=== PATIENT | female | born 1995 | race American Indian/Alaskan Native ===

== ENCOUNTER 2018-10-14 07:52 | Emergency (ER) | payer OTHER ==
[2018-10-14] MEDS ORDERED: IBUPROFEN PO ONE (09:16)
--- NOTE | 2018-10-14 09:17 | Emergency Department Report ---
ED Extremity Problem HPI - General Chief complaint: Extremity Injury, Lower Stated complaint: (R) FOOT PAIN Time Seen by Provider: 10/14/18 09:01 Source: patient Mode of arrival: Ambulatory Limitations: No Limitations - History of Present Illness Initial comments: 23-year-old female presents to ED with pain to right heel 3 days. Patient denies any injury. States that she awoke from sleep, got out of bed, and immediately experienced pain in her right heel upon standing. She states she has kept it elevated when not at work. Has been using her mother's cane for ambulation. Denies any swelling. Denies taking any medications for pain. MD Complaint: extremity pain -: days(s) (3) Location: right, other (foot) History of Same: No -: No myalgia, No fever Radiation: none Severity scale (0 -10): 10 Quality: aching Consistency: intermittent Improves with: immobilization Worsens with: weight bearing, walking Associated Symptoms: denies other symptoms - Related Data Previous Rx's Medication Instructions Recorded Last Taken Type Naproxen [Naprosyn] 500 mg PO BID #20 tablet 10/14/18 Unknown Rx predniSONE [Prednisone] 50 mg PO DAILY #5 tablet 10/14/18 Unknown Rx Allergies Allergy/AdvReac Type Severity Reaction Status Date / Time No Known Allergies Allergy Unverified 10/14/18 07:53 ED Review of Systems ROS: Stated complaint: (R) FOOT PAIN Other details as noted in HPI Comment: All other systems reviewed and negative Musculoskeletal: as per HPI. denies: joint swelling Neurological: denies: paresthesias ED Past Medical Hx - Past Medical History Previous Medical History?: No - Surgical History Additional Surgical History: T&A - Social History Smoking Status: Current Every Day Smoker Substance Use Type: Alcohol - Medications Home Medications: Home Medications Medication Instructions Recorded Confirmed Last Taken Type Naproxen [Naprosyn] 500 mg PO BID #20 tablet 10/14/18 Unknown Rx predniSONE [Prednisone] 50 mg PO DAILY #5 tablet 10/14/18 Unknown Rx ED Physical Exam - General Limitations: No Limitations General appearance: alert, in no apparent distress, obese - Head Head exam: Present: atraumatic, normocephalic - Eye Eye exam: Present: normal appearance - ENT ENT exam: Present: mucous membranes moist - Neck Neck exam: Present: normal inspection - Respiratory Respiratory exam: Present: normal lung sounds bilaterally. Absent: respiratory distress - Cardiovascular Cardiovascular Exam: Present: regular rate, normal rhythm - GI/Abdominal GI/Abdominal exam: Present: soft. Absent: distended - Extremities Exam Extremities exam: Present: other (tenderness to right heel, no swelling or erythema noted) - Neurological Exam Neurological exam: Present: alert, oriented X3 - Psychiatric Psychiatric exam: Present: normal affect, normal mood - Skin Skin exam: Present: warm, dry, intact, normal color ED Course Vital Signs 10/14/18 07:53 Temperature 99.1 F Pulse Rate 82 Respiratory 18 Rate Blood Pressure 156/100 O2 Sat by Pulse 100 Oximetry Critical care attestation.: If time is entered above; I have spent that time in minutes in the direct care of this critically ill patient, excluding procedure time. ED Disposition Clinical Impression: Plantar fasciitis of right foot Disposition: DC-01 TO HOME OR SELFCARE Is pt being admited?: No Condition: Stable Instructions: Plantar Fasciitis (ED) Prescriptions: Naproxen [Naprosyn] 500 mg PO BID #20 tablet predniSONE [Prednisone] 50 mg PO DAILY #5 tablet Referrals: [facility] [Other] - 3-5 Days NIKKI BIANCHI MD [Staff Physician] - 3-5 Days Time of Disposition: 09:17
[2018-10-14 10:01] VITALS: BP 120/84
== END 2018-10-14 09:59 | disposition home or self-care (01) ==
LOC: ED 07:52
DX: M72.2 Plantar fascial fibromatosis (principal); F17.200 Nicotine dependence, unspecified, uncomplicated
CPT/HCPCS: 99283

== ENCOUNTER 2019-02-26 17:21 | Emergency (ER) | payer SELFPAY ==
[2019-02-26 18:00] VITALS: BP 175/93
--- NOTE | 2019-02-26 18:00 | Event Note ---
ED Screening Note ED Screening Note: pt states she did not have a cycle last month states she began to have bleeding on February 16 and is still having bleeding now states first it was spotting but has gotten heavier no urinary sx no N/V/D no fever no PMHx no allergies to meds +smoker +occ drinker no drug use This initial assessment/diagnostic orders/clinical plan/treatment(s) is/are subject to change based on patients health status, clinical progression and re- assessment by fellow clinical providers in the ED. Further treatment and workup at subsequent clinical providers discretion. Patient/guardian urged not to elope from the ED as their condition may be serious if not clinically assessed and managed. Initial orders include: UA, labs
[2019-02-26 18:32] LABS: Basophils # (Auto) 0.1 K/mm3 (0.0-0.1); Basophils % (Auto) 0.8 % (0.0-1.8); Eosinophils # (Auto) 0.1 K/mm3 (0.0-0.4); Eosinophils % (Auto) 1.5 % (0.0-4.3); Hematocrit 39.4 % (30.3-42.9); Lymphocytes # (Auto) 2.2 K/mm3 (1.2-5.4); Lymphocytes % (Auto) 30.2 % (13.4-35.0); Mean Corpuscular HGB Conc 33 % (30-34); Mean Corpuscular Volume 92 fl (79-97); Monocytes # (Auto) 0.5 K/mm3 (0.0-0.8); Monocytes % (Auto) 6.8 % (0.0-7.3); Platelet Count 315 K/mm3 (140-440); Red Blood Count 4.29 M/mm3 (3.65-5.03); Red Cell Distribution Width 14.6 % (13.2-15.2)
[2019-02-26 18:52] LABS: BUN/Creatinine Ratio 20; Blood Urea Nitrogen 14 mg/dL (7-17); Calcium 9.2 mg/dL (8.4-10.2); Hemolysis Index 9
[2019-02-26 19:20] LABS: Bilirubin,Urine NEG (Negative); Blood,Urine LG (Negative); Color,Urine Yellow (Yellow); Mucus,Urine FEW /HPF
[2019-02-26 19:23] LABS: RBC,Urine > 182.0 /HPF (0.0-6.0)
[2019-02-26] MEDS ORDERED: IBUPROFEN PO ONE (20:03)
[2019-02-26] MEDS ORDERED: FIORICET PO ONE (20:03)
--- NOTE | 2019-02-26 20:50 | Emergency Department Report ---
ED Female HPI - General Chief complaint: Vaginal Bleeding Stated complaint: FATIGUE/LONG CYCLE/HEADACHE Time Seen by Provider: 02/26/19 17:57 Source: patient Mode of arrival: Ambulatory Limitations: No Limitations - History of Present Illness Initial comments: Patient is a nulliparous 23-year-old -[place] female who presents to the ED with complaint of acute onset persistent heavy vaginal bleeding and prolonged menstrual cycle for the last 2 weeks with generalized weakness, headache, low back pain, and suprapubic pain. Patient denies dizziness, fever, chills, nausea, vomiting, dysuria, urinary frequency and urgency, diarrhea, traumatic injury or heavy lifting, chest pain or shortness of breath. Patient states that prior to the onset of this symptom she had been having a lot of anxiety and stress moments at work and at home. Patient states that it's been over 10 years since she was on control pills. MD Complaint: vaginal bleeding, other (generalized weakness, headache, back pain) -: Sudden, week(s) (2) Location: other (Vaginal) Radiation: non-radiating Severity: moderate Severity scale (0 -10): 6 Quality: cramping, sharp Consistency: intermittent Improves with: none Worsens with: menstrual period Are you Now?: No Last Menstrual Period: 12/22/18 EDC: 09/28/19 Associated Symptoms: denies other symptoms, vaginal bleeding, abdominal pain, weakness. denies: vaginal discharge, nausea/vomiting, fever/chills, headaches, loss of appetite, dysuria, hematuria, rash, shortness of breath, syncope - Related Data Sexually active: Yes : 0 Para: 0 A: 0 Previous Rx's Medication Instructions Recorded Last Taken Type Naproxen [Naprosyn] 500 mg PO BID #20 tablet 10/14/18 Unknown Rx predniSONE [Prednisone] 50 mg PO DAILY #5 tablet 10/14/18 Unknown Rx Ibuprofen [Motrin] 800 mg PO Q8HR PRN #24 tablet 02/26/19 Unknown Rx medroxyPROGESTERone ACETATE 10 mg PO DAILY #10 tablet 02/26/19 Unknown Rx [Medroxyprogesterone Acetate] Allergies Allergy/AdvReac Type Severity Reaction Status Date / Time No Known Allergies Allergy Verified 02/26/19 17:22 ED Review of Systems ROS: Stated complaint: FATIGUE/LONG CYCLE/HEADACHE Other details as noted in HPI Constitutional: denies: chills, fever Eyes: denies: eye pain, eye discharge, vision change ENT: denies: ear pain, throat pain Respiratory: denies: cough, shortness of breath, wheezing Cardiovascular: denies: chest pain, palpitations Endocrine: no symptoms reported Gastrointestinal: denies: abdominal pain, nausea, diarrhea Genitourinary: abnormal menses (heavy prolonged menses). denies: urgency, dysuria, discharge Musculoskeletal: back pain. denies: joint swelling, arthralgia Skin: denies: rash, lesions Neurological: headache. denies: weakness, paresthesias Psychiatric: anxiety. denies: depression Hematological/Lymphatic: denies: easy bleeding, easy bruising ED Past Medical Hx - Past Medical History Previous Medical History?: No - Surgical History Past Surgical History?: Yes Additional Surgical History: T&A - Social History Smoking Status: Current Every Day Smoker Substance Use Type: Alcohol - Medications Home Medications: Home Medications Medication Instructions Recorded Confirmed Last Taken Type Naproxen [Naprosyn] 500 mg PO BID #20 tablet 10/14/18 Unknown Rx predniSONE [Prednisone] 50 mg PO DAILY #5 tablet 10/14/18 Unknown Rx Ibuprofen [Motrin] 800 mg PO Q8HR PRN #24 tablet 02/26/19 Unknown Rx medroxyPROGESTERone ACETATE 10 mg PO DAILY #10 tablet 02/26/19 Unknown Rx [Medroxyprogesterone Acetate] ED Physical Exam - General Limitations: No Limitations General appearance: alert, in no apparent distress - Head Head exam: Present: atraumatic, normocephalic, normal inspection - Eye Eye exam: Present: normal appearance, PERRL, EOMI Pupils: Present: normal accommodation - ENT ENT exam: Present: normal exam, normal orophraynx, mucous membranes moist, TM's normal bilaterally, normal external ear exam - Neck Neck exam: Present: normal inspection, full ROM. Absent: tenderness - Respiratory Respiratory exam: Present: normal lung sounds bilaterally. Absent: respiratory distress, wheezes, rales, rhonchi, chest wall tenderness, accessory muscle use, decreased breath sounds - Cardiovascular Cardiovascular Exam: Present: regular rate, normal rhythm, normal heart sounds. Absent: systolic murmur, diastolic murmur, rubs, gallop - GI/Abdominal GI/Abdominal exam: Present: soft, normal bowel sounds. Absent: tenderness, guarding, rebound, hyperactive bowel sounds, hypoactive bowel sounds, organomegaly, bruit - Extremities Exam Extremities exam: Present: normal inspection, full ROM, normal capillary refill - Back Exam Back exam: Present: normal inspection, full ROM, tenderness, muscle spasm, paraspinal tenderness (Palpable mild lumbosacral paraspinal musculoskeletal tenderness). Absent: CVA tenderness (L) - Neurological Exam Neurological exam: Present: alert, oriented X3, CN II-XII intact, normal gait, reflexes normal - Psychiatric Psychiatric exam: Present: normal affect, normal mood, anxious - Skin Skin exam: Present: warm, dry, intact, normal color. Absent: rash ED Course Vital Signs 02/26/19 17:57 Temperature 98.4 F Pulse Rate 85 Respiratory 20 Rate Blood Pressure 175/93 [Right] O2 Sat by Pulse 98 Oximetry - Reevaluation(s) Reevaluation #1: 02/26/19 20:57 Patient is alert and oriented 3 and is not in distress with normal vital signs. This is also reviewed and were unremarkable. The patient was treated for pain in the ED and was discharged home on a prescription for temporary medroxyprogesterone by mouth 1 daily for 10 days. Patient advised to follow-up with [facility]EDIT CONSULTANT physician in 7-10 days for reevaluation or her primary care physician the same period. Patient advised to return to the ED immediately if symptoms get worse. ED Medical Decision Making - Lab Data Result diagrams: 02/26/19 18:14 02/26/19 18:14 - Medical Decision Making Patient is alert and oriented 3 and is not in distress with normal vital signs. This is also reviewed and were unremarkable. The patient was treated for pain in the ED and was discharged home on a prescription for temporary medroxyprogesterone by mouth 1 daily for 10 days. Patient advised to follow-up with CREDIT CONSULTANT physician in 7-10 days for reevaluation or her primary care physician the same period. Patient advised to return to the ED immediately if symptoms get worse. - Differential Diagnosis Generalized weakness, Menometrorrhagia,Dysfunctional Uterine Bleeding, Critical care attestation.: If time is entered above; I have spent that time in minutes in the direct care of this critically ill patient, excluding procedure time. ED Disposition Clinical Impression: Dysfunctional uterine hemorrhage, Spasm of muscle of lower back, Anxiety as acute reaction to exceptional stress Tension-type headache Qualifiers: Headache chronicity pattern: acute headache Intractability: not intractable Qualified Code(s): G44.209 - Tension-type headache, unspecified, not intractable Disposition: DC- TO HOME OR SELFCARE Is pt being admited?: No Does the pt Need Aspirin: No Condition: Stable Instructions: Menstruation (ED), Tension Headache (ED), Muscle Spasm (ED) Additional Instructions: Take medications, drink plenty of fluids and follow-up with your primary care physician in 7-10 days for reevaluation. Consider following up with the CREDIT CONSULTANT physician as well in 7-10 days. Return to ED immediately if symptoms get worse. Prescriptions: medroxyPROGESTERone ACETATE [Medroxyprogesterone Acetate] 10 mg PO DAILY #10 tablet Ibuprofen [Motrin] 800 mg PO Q8HR PRN #24 tablet PRN Reason: Pain , Severe (7-10) Referrals: [facility] [Outside] - 3-5 Days ERIC INMAN MD [Staff Physician] - 3-5 Days Forms: Work/School Release Form(ED) Time of Disposition: 20:48 Print Language: SALVADOREAN
[2019-02-26] MEDS ORDERED: PROVERA PO SCH (21:00)
== END 2019-02-26 21:13 | disposition home or self-care (01) ==
LOC: ED 17:21
DX: N93.8 Other specified abnormal uterine and vaginal bleeding (principal); M62.830 Muscle spasm of back; G44.209 Tension-type headache, unspecified, not intractable; F43.0 Acute stress reaction; F17.200 Nicotine dependence, unspecified, uncomplicated; Z79.1 Long term (current) use of non-steroidal anti-inflammatories (NSAID); Z79.899 Other long term (current) drug therapy
CPT/HCPCS: 36415; 80048; 81001; 84702; 85025; 99283

== ENCOUNTER 2019-10-21 16:41 | Outpatient (CLI) | payer MEDICAID ==
[2019-10-21 18:44] LABS: Bacteria,Urine 1+ /HPF (Negative); Bilirubin,Urine NEG (Negative); Blood,Urine NEG (Negative); Color,Urine Yellow (Yellow); Mucus,Urine FEW /HPF
[2019-10-21] MEDS ORDERED: LACTATED RINGERS 1,000 ML IV SCH (19:00)
[2019-10-21 20:05] VITALS: BP 136/65
== END 2019-10-21 20:24 | disposition home or self-care (01) ==
LOC: TRG 16:41
PROVIDERS: ATTEND Obstetrics & Gynecology
DX: O26.892 Other specified pregnancy related conditions, second trimester (principal); R10.9 Unspecified abdominal pain; Z3A.21 21 weeks gestation of pregnancy
CPT/HCPCS: 81001

== ENCOUNTER 2019-10-23 07:16 | Outpatient (CLI) | payer MEDICAID ==
[2019-10-23 09:06] VITALS: BP 120/72
[2019-10-23] MEDS ORDERED: LACTATED RINGERS 1,000 ML IV ONE (09:08)
[2019-10-23 09:47] LABS: Bacteria,Urine 1+ /HPF (Negative); Bilirubin,Urine NEG (Negative); Blood,Urine SM (Negative); Color,Urine Amber (Yellow); Mucus,Urine 1+ /HPF; Protein,Urine <15 mg/dL mg/dL (Negative); Urobilinogen,Urine < 2.0 mg/dL (<2.0)
[2019-10-23 09:48] LABS: Amphetamine Screen,Urine PRESUMPTIVE NEGATIVE; Benzodiazepines Screen,Urine PRESUMPTIVE NEGATIVE; Cannabinoid Screen,Urine PRESUMPTIVE NEGATIVE; Cocaine Screen,Urine PRESUMPTIVE NEGATIVE; Methadone Screen,Urine PRESUMPTIVE NEGATIVE; Opiate Screen,Urine PRESUMPTIVE NEGATIVE
[2019-10-23 09:51] LABS: Hematocrit 36.4 % (30.3-42.9); Hemoglobin 12.2 gm/dl (10.1-14.3); Mean Corpuscular HGB Conc 34 % (30-34); Mean Corpuscular Volume 91 fl (79-97); Platelet Count 335 K/mm3 (140-440); Red Blood Count 4.02 M/mm3 (3.65-5.03)
[2019-10-23 10:32] LABS: Alanine Aminotransferase TNR units/L (7-56)
[2019-10-23 10:34] LABS: Albumin TNR g/dL (3.9-5); BUN/Creatinine Ratio TNR; Blood Urea Nitrogen TNR mg/dL (7-17); Calcium TNR mg/dL (8.4-10.2); Hemolysis Index TNR
[2019-10-23] MEDS ORDERED: ACETAMINOPHEN 500 MG TAB PO SCH (11:00)
--- NOTE | 2019-10-23 12:18 | Ultrasound Report ---
ULTRASOUND OBSTETRIC LIMITED INDICATION / CLINICAL INFORMATION: placenta position.. TECHNIQUE: Transabdominal ultrasound imaging. COMPARISON: None available. FINDINGS: HEART RATE (beats per minute): 154 AMNIOTIC FLUID INDEX (cm) = qualitatively normal PRESENTATION: Cephalic. ADDITIONAL FINDINGS: The placenta is posterior, left lateral, grade 0. IMPRESSION: No significant abnormality. Signer Name: Raul Laboy Jr, MD Signed: 10/23/2019 12:13 PM Workstation Name: [id number]
== END 2019-10-23 11:20 | disposition home or self-care (01) ==
LOC: TRG 07:16
PROVIDERS: ATTEND Obstetrics & Gynecology
DX: O26.892 Other specified pregnancy related conditions, second trimester (principal); R20.0 Anesthesia of skin; O47.02 False labor before 37 completed weeks of gestation, second trimester; O99.332 Smoking (tobacco) complicating pregnancy, second trimester; F17.200 Nicotine dependence, unspecified, uncomplicated; Z3A.21 21 weeks gestation of pregnancy
CPT/HCPCS: 36415; 76815; 80053; 80307; 81001; 82962; 85027; 87086; 96360; J7120